=== PATIENT | male | born 1955 | race Hispanic/Latino ===

== ENCOUNTER 2017-11-08 02:14 | Observation (INO) | payer MEDICAID ==
[2017-11-08 02:15] VITALS: BMI 26.6
--- NOTE | 2017-11-08 03:29 | ED PDOC ---
HPI: Hypertension/Hypotension Time Seen by Provider: 11/08/17 02:50 Chief Complaint (Nursing): High Blood Pressure Chief Complaint (Provider): Hypertension History Per: Patient History/Exam Limitations: no limitations Onset/Duration Of Symptoms: Mins Current Symptoms Are (Timing): Still Present Associated Symptoms: Chest Pain (when blood pressure was elevated, around 11:15 PM last night) Additional History Per: Patient Additional Complaint(s): 62yo male with history of hypertension, hypercholesterolemia, diabetes, CABG, presents to ED for evaluation of elevated blood pressure and associated chest pain when blood pressure was elevated. Patient states he checked his blood pressure at 11:15 PM last night and noted it was 230/115, prompting his visit to the ED. Patient denies any chest pain at present, shortness of breath, headache, weakness, numbness, nausea, vomiting. No other complaints. PCP: Dr. Sanders Past Medical History Reviewed: Historical Data, Nursing Documentation, Vital Signs Vital Signs: Last Vital Signs Temp 98 F 11/08/17 02:27 Pulse 61 11/08/17 02:27 Resp 18 11/08/17 02:27 BP 148/97 H 11/08/17 02:57 Pulse Ox 99 11/08/17 02:27 - Medical History PMH: CAD, Diabetes, HTN, Hypercholesterolemia, Hyperlipidemia, Peripheral Edema , Rheumatoid Arthritis Denies: Chronic Kidney Disease - Surgical History Surgical History: CABG (x6) - Family History Family History: States: Unknown Family Hx - Living Arrangements Living Arrangements: With Family - Social History Current smoker - smoking cessation education provided: No Ex-Smoker (has not smoked in the last 12 months): No Alcohol: None Drugs: Denies - Immunization History Hx Tetanus Toxoid Vaccination: Yes Hx Influenza Vaccination: No Hx Pneumococcal Vaccination: Yes - Home Medications Home Medications: Ambulatory Orders Medication Instructions Recorded Atorvastatin [Lipitor] 40 mg PO HS 02/03/16 Losartan Potassium 50 mg PO BID 02/03/16 Metoprolol Tartrate [Lopressor] 100 mg PO BID 02/03/16 Minoxidil 2.5 mg PO DAILY 02/03/16 Triamterene/Hydrochlorothiazid 1 tab PO DAILY 02/03/16 [Triamterene-Hctz 37.5-25 mg Cp] metFORMIN [glucOPHAGE] 500 mg PO BID 02/03/16 Tamsulosin [Flomax] 0.4 mg PO DAILY 08/24/17 Aspirin [Ecotrin] 325 mg PO DAILY #30 11/08/17 Clopidogrel [Plavix] 75 mg PO DAILY #30 tab 11/08/17 Isosorbide Mononitrate ER [Imdur 30 mg PO DAILY #30 tab 11/08/17 ER] Nitroglycerin [Nitrostat] 0.4 mg SL Q4 PRN #20 tab.subl 11/08/17 hydroCHLOROthiazide [Hydrodiuril] 25 mg PO DAILY tab 11/08/17 - Allergies Allergies/Adverse Reactions: Allergies Allergy/AdvReac Type Severity Reaction Status Date / Time No Known Allergies Allergy Verified 08/24/17 01:03 Review of Systems ROS Statement: Except As Marked, All Systems Reviewed And Found Negative Constitutional: Negative for: Fever Cardiovascular: Positive for: Other (elevated blood pressure). Negative for: Chest Pain Respiratory: Negative for: Shortness of Breath Gastrointestinal: Negative for: Vomiting, Diarrhea Neurological: Negative for: Headache Physical Exam - Reviewed Nursing Documentation Reviewed: Yes Vital Signs Reviewed: Yes - Physical Exam Appears: Positive for: Non-toxic, No Acute Distress Head Exam: Positive for: ATRAUMATIC, NORMAL INSPECTION, NORMOCEPHALIC Skin: Positive for: Normal Color Eye Exam: Positive for: EOMI, PERRL Neck: Positive for: Normal, Supple Cardiovascular/Chest: Positive for: Regular Rate, Rhythm Respiratory: Positive for: Normal Breath Sounds. Negative for: Respiratory Distress Gastrointestinal/Abdominal: Positive for: Soft. Negative for: Tenderness Back: Positive for: Normal Inspection Extremity: Positive for: Normal ROM. Negative for: Deformity, Swelling Neurologic/Psych: Positive for: Alert, Oriented. Negative for: Motor/Sensory Deficits - Laboratory Results Result Diagrams: 11/08/17 03:23 11/08/17 03:23 - ECG ECG: Positive for: Interpreted By Me, Viewed By Me ECG Rhythm: Positive for: Normal QRS, Normal ST Segment, Sinus Rhythm. Negative for: ST/T Changes Rate: 63 O2 Sat by Pulse Oximetry: 99 (RA) Pulse Ox Interpretation: Normal Medical Decision Making Medical Decision Making: Impression: Hypertension and chest pain Plan: -- Labs -- EKG -- Chest x-ray Reassess chest pain ekg no change from prior troponin neg pt got asa 81 at home, given another 81 mg here. given nitro for pain/blood pressure. Time: 412 Patient to be admitted to OBS-TELE under Dr. Avery Scribe Attestation: Documented by Eli Polanco acting as a scribe for Tray Spangler MD. Provider Attestation: All medical record entries made by the Scribe were at my direction and personally dictated by me. I have reviewed the chart and agree that the record accurately reflects my personal performance of the history, physical exam, medical decision making, and the department course for this patient. I have also personally directed, reviewed, and agree with the discharge instructions and disposition. Disposition - Clinical Impression Clinical Impression: Abnormal blood pressure, Chest pain - Patient ED Disposition Is Patient to be Admitted: Yes Counseled Patient/Family Regarding: Studies Performed, Diagnosis - Disposition Disposition Time: 04:00 Condition: STABLE
[2017-11-08 03:35] LABS: BASO # 0.1 K/uL (0.0-0.2); BASO % 0.8 % (0.0-2.0); EOS # 0.1 K/uL (0.0-0.7); EOS % 1.8 % (0.0-4.0); HEMATOCRIT 41.4 % (35.0-51.0); LYMPH % 29.2 % (20.0-40.0); MEAN CELL VOLUME 77.9 fl (80.0-94.0); MEAN CORPUSCULAR HEMOGLOBIN 25.8 pg (27.0-31.0); MEAN CORPUSCULAR HGB CONC 33.1 g/dL (33.0-37.0); MEAN PLATELET VOLUME 9.1 fl (7.2-11.7); MONO # 0.5 K/uL (0.0-0.8); MONO % 7.1 % (0.0-10.0); NEUT # 4.2 K/uL (1.8-7.0); NEUT % 61.1 % (50.0-75.0); NRBC % 0.2 % (0.0-0.0); RED CELL DISTRIBUTION WIDTH 14.3 % (11.5-14.5); WHITE BLOOD COUNT 6.9 K/uL (4.8-10.8)
[2017-11-08 03:36] LABS: ALB/GLOB RATIO 1.3 (1.0-2.1); ALKALINE PHOSPHATASE 55 U/L (38-126); ALT/SGPT 42 U/L (21-72); AST/SGOT 28 U/L (17-59); BILIRUBIN,TOTAL 0.6 mg/dl (0.2-1.3); BLOOD UREA NITROGEN 13 mg/dl (9-20); CARBON DIOXIDE 22 mmol/L (22-30); CHLORIDE 105 mmol/L (98-107); GFR AFRICAN-AMERICAN > 60; GLUCOSE,RANDOM 106 mg/dL (75-110); SODIUM 140 mmol/l (132-148); TOTAL PROTEIN 7.6 G/DL (6.3-8.2)
--- NOTE | 2017-11-08 08:30 | CARD ---
APPROVED REPORT EKG Measurement Heart [id number] <Conclusion> Normal sinus rhythm Possible Left atrial enlargement Possible Inferior infarct, age undetermined Abnormal ECG
--- NOTE | 2017-11-08 08:31 | CARD ---
APPROVED REPORT EKG Measurement Heart [id number] <Conclusion> Normal sinus rhythm Possible Left atrial enlargement Possible Inferior infarct, age undetermined Abnormal ECG
--- NOTE | 2017-11-08 09:12 | RAD ---
HISTORY: chest pain COMPARISON: No prior. FINDINGS: LUNGS: No active pulmonary disease. PLEURA: No significant pleural effusion identified, no pneumothorax apparent. CARDIOVASCULAR: Prior sternotomy with sternal wires and surgical clips in place. Cardiomediastinal silhouette prominent. OSSEOUS STRUCTURES: Degenerative changes. VISUALIZED UPPER ABDOMEN: Normal. OTHER FINDINGS: None. IMPRESSION: No active disease.
--- NOTE | 2017-11-08 10:05 | PCM.RRT ---
<Nicolasa Silva - Last Filed: 11/08/17 11:26> I.Reason for CUSTOMER RELATIONSHIP SPECIALIST - A) Acute Change in Patient: Subjective: 62 yo M with hx hypertension, hypercholesterolemia, diabetes, CABG. CUST[employer]ER RELATIONSHIP SPECIALIST called for pt complain of chest pain. On arrival, BP was 136/75, HR 58, O2 sat 96%. Pt was complaining of moderate L sided squeezing chest pain. Chest pain was reproducible. Denied dyspnea. EKG was done - showed no acute changes from prior EKG. Blood was drawn for troponin. During the CUST[employer]ER RELATIONSHIP SPECIALIST pt desaturated to 92-93%, was placed on O2 via nasal canula. Improved to 96%. During [employer] RELATIONSHIP SPECIALIST, pt received nitroglycerin 0.4 mg. Pt felt relief after getting nitroglycerin. BP remained stable. Pt had negative troponin in ED at 3:30 am (negative), and received aspirin and nitroglycerin in ED. A: 62 yo M, with hx of hypertension, hypercholesterolemia, diabetes, CABG who had CUSTOMER RELATIONSHIP SPECIALIST called for chest pain. P: EKG- no acute changes from last EKG Troponin drawn during [employer]ER RELATIONSHIP SPECIALIST - negative Check troponin at 2 pm Case discussed with hospitalist Dr. Hodge, who was present at [employer]ATIONSHIP [employer]IST. <Fannie Hodge - Last Filed: 11/08/17 11:58> Attending/Attestation - Attestation I have personally seen and examined this patient.: Yes I have fully participated in the care of the patient.: Yes I have reviewed all pertinent clinical information, including history, physical exam and plan: Yes Notes (Text): 11/08/17 11:56 seen examined discussed with resident Dr. Costello called for chest pain, moderate pressure and squeezing, lasting more than 15 minutes relieved with SL nitro. HD stable. EKG no new changes from last, no ST-T wave segment changes during episode of chest pain. repeat troponin negative discussed with Cardiology Dr. Garcia notified and discussed with primary attending Dr. Avery
--- NOTE | 2017-11-08 10:08 | CP.PCM.CON ---
History of Present Illness - History of Present Illness History of Present Illness: This 62-year-old man came to the emergency room after experiencing chest discomfort which occurred after discovery of an elevated blood pressure reading at home. The patient subsequently experienced chest discomfort every time he recorded his blood pressure and was found to have an elevated reading. The patient admits to having eaten salty food within the last to 3 days. He has a long medical history that includes hypertension diabetes and dyslipidemia and admits to having smoked in the past. He had an acute myocardial infarction in 2009 and subsequently required coronary bypass graft surgery in 2012. Following this surgery the patient has been quite stable and a recent stress test which included exercising on a treadmill followed by myocardial perfusion imaging was reported as being satisfactory. 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 These particular episodes of chest discomfort that brought him to the hospital where not accompanied by any nausea vomiting or perspiration or did not radiate to his jaw or arms. A nitroglycerin tablet given in the emergency room and subsequently on the floor were followed by relief within 5 minutes. Electrocardiograms were recorded 32 of them during an episode of chest discomfort. There is no significant family history or symptoms of congestive cardiac failure. Physical examination shows a middle aged man who is comfortable at rest and quite free of chest discomfort. His risk greatly rate was 16 breaths per minute and the patient could carry on a conversation while propped up in bed. His heart rate was 68 bpm and regular and his blood pressure was 122/70 mmHg. His jugular venous pressure was not elevated and there was no edema over his lower extremity. His pedal pulses were well felt. There were no carotid bruits. His extremities were warm and his nailbeds were pink. No central or peripheral cyanosis was evident. A scar of sternotomy was present. the apex was not palpable the first and second heart sounds were normal. There were no murmurs and there was no gallop. There were no rales. His abdomen was soft and liver and spleen are not palpable. His electro-cardiogram showed sinus rhythm with evidence of an old inferior wall myocardial infarction. There were no ST-T abnormalities of myocardial ischemia recorded during chest pain this morning. 2 sets of cardiac enzymes were negative for any evidence of myocyte injury. His hemoglobin and hematocrit as well as BUN/creatinine and electrolytes were all within normal limits. Impression: Chest pain at rest with no evidence off acute coronary syndrome. 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 Hypertension, diabetes and dyslipidemia. 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 Past Patient History - Past Medical History & Family History Past Medical History?: Yes - Past Social History Alcohol: None Drugs: Denies - CARDIAC Hx Cardiac Disorders: Yes (HTN/CAD/CABG/High Cholesterol) - PULMONARY Hx Respiratory Disorders: No - NEUROLOGICAL Hx Neurological Disorder: No - HEENT Hx HEENT Problems: No - RENAL Hx Chronic Kidney Disease: No - ENDOCRINE/METABOLIC Hx Endocrine Disorders: Yes (DMII) - HEMATOLOGICAL/ONCOLOGICAL Hx Blood Disorders: No - INTEGUMENTARY Hx Dermatological Problems: Yes Other/Comment: MAS ON NECK(UPPER LEFT CHEST AREA NEAR NECK) FOR SURGERY . - MUSCULOSKELETAL/RHEUMATOLOGICAL Hx Rheumatoid Arthritis: Yes - GASTROINTESTINAL Hx Gastrointestinal Disorders: Yes Hx Constipation: Yes - GENITOURINARY/GYNECOLOGICAL Hx Genitourinary Disorders: No - PSYCHIATRIC Hx Substance Use: No - SURGICAL HISTORY Hx Coronary Artery Bypass Graft: Yes (x6) - ANESTHESIA Hx Anesthesia: Yes Hx Anesthesia Reactions: No Hx Malignant Hyperthermia: No Meds Allergies/Adverse Reactions: Allergies Allergy/AdvReac Type Severity Reaction Status Date / Time No Known Allergies Allergy Verified 08/24/17 01:03 - Medications Medications: Current Medications Aspirin (Ecotrin) 81 mg PO DAILY [facility] Last Admin: 11/08/17 08:49 Dose: 81 mg Atorvastatin Calcium (Lipitor) 40 mg PO [facility] Heparin Sodium (Porcine) (Heparin) 5,000 units SC Q8 [facility] PRN Reason: Protocol Last Admin: 11/08/17 08:48 Dose: 5,000 units Hydrochlorothiazide (Hydrodiuril) 25 mg PO DAILY [facility] Last Admin: 11/08/17 08:48 Dose: 25 mg Losartan Potassium (Cozaar) 50 mg PO BID [facility] Last Admin: 11/08/17 08:48 Dose: 50 mg Metformin HCl (Glucophage) 500 mg PO BID [facility] Last Admin: 11/08/17 08:51 Dose: 500 mg Metoprolol Tartrate (Lopressor) 100 mg PO BID [facility] Last Admin: 11/08/17 08:50 Dose: 100 mg Minoxidil (Minoxidil) 2.5 mg PO DAILY [facility] Last Admin: 11/08/17 08:50 Dose: 2.5 mg Tamsulosin HCl (Flomax) 0.4 mg PO DAILY [facility] Last Admin: 11/08/17 08:49 Dose: 0.4 mg Results - Vital Signs Recent Vital Signs: Last Vital Signs Temp 97.9 F 11/08/17 08:00 Pulse 61 11/08/17 08:50 Resp 20 11/08/17 08:00 BP 117/66 11/08/17 08:50 Pulse Ox 99 11/08/17 08:00 - Labs Result Diagrams: 11/08/17 03:23 11/08/17 03:23 Labs: Laboratory Results - last 24 hr 11/08/17 11/08/17 11/08/17 03:23 03:23 03:39 WBC 6.9 RBC 5.32 Hgb 13.7 Hct 41.4 MCV 77.9 L MCH 25.8 L MCHC 33.1 RDW 14.3 Plt Count 186 MPV 9.1 Neut % (Auto) 61.1 Lymph % (Auto) 29.2 [place] % (Auto) 7.1 Eos % (Auto) 1.8 Baso % (Auto) 0.8 Neut # 4.2 Lymph # 2.0 [place] # 0.5 Eos # 0.1 Baso # 0.1 Sodium 140 Potassium 4.0 Chloride 105 Carbon Dioxide 22 Anion Gap 17 BUN 13 Creatinine 0.8 Est GFR ( Amer) > 60 Est GFR (Non-Af Amer) > 60 POC Glucose (mg/dL) 108 Random Glucose 106 Calcium 9.0 Total Bilirubin 0.6 AST 28 ALT 42 Alkaline Phosphatase 55 Troponin I < 0.0120 Total Protein 7.6 Albumin 4.3 Globulin 3.3 Albumin/Globulin Ratio 1.3 11/08/17 11/08/17 05:57 08:24 WBC RBC Hgb Hct MCV MCH MCHC RDW Plt Count MPV Neut % (Auto) Lymph % (Auto) [place] % (Auto) Eos % (Auto) Baso % (Auto) Neut # Lymph # [place] # Eos # Baso # Sodium Potassium Chloride Carbon Dioxide Anion Gap BUN Creatinine Est GFR ( Amer) Est GFR (Non-Af Amer) POC Glucose (mg/dL) 114 H Random Glucose Calcium Total Bilirubin AST ALT Alkaline Phosphatase Troponin I < 0.0120 Total Protein Albumin Globulin Albumin/Globulin Ratio
[2017-11-08 16:23] VITALS: BP 125/69; RESP 14; TEMP 98.3
--- NOTE | 2017-11-08 16:37 | CP.PCM.HP ---
Past Patient History - Past Medical History & Family History Past Medical History?: Yes - Past Social History Smoking Status: Never Smoked - CARDIAC Hx Cardiac Disorders: Yes (HTN/CAD/CABG/High Cholesterol) - PULMONARY Hx Respiratory Disorders: No - NEUROLOGICAL Hx Neurological Disorder: No - HEENT Hx HEENT Problems: No - RENAL Hx Chronic Kidney Disease: No - ENDOCRINE/METABOLIC Hx Endocrine Disorders: Yes (DMII) - HEMATOLOGICAL/ONCOLOGICAL Hx AIDS: No Hx Human Immunodeficiency Virus (HIV): No - INTEGUMENTARY Hx Dermatological Problems: Yes Other/Comment: MAS ON NECK(UPPER LEFT CHEST AREA NEAR NECK) FOR SURGERY . - MUSCULOSKELETAL/RHEUMATOLOGICAL Hx Falls: No - GASTROINTESTINAL Hx Gastrointestinal Disorders: Yes Hx Constipation: Yes - GENITOURINARY/GYNECOLOGICAL Hx Genitourinary Disorders: No - PSYCHIATRIC Hx Substance Use: No - SURGICAL HISTORY Hx Coronary Artery Bypass Graft: Yes (x6) - ANESTHESIA Hx Anesthesia: Yes Hx Anesthesia Reactions: No Hx Malignant Hyperthermia: No Meds Allergies/Adverse Reactions: Allergies Allergy/AdvReac Type Severity Reaction Status Date / Time No Known Allergies Allergy Verified 08/24/17 01:03 Results - Vital Signs Recent Vital Signs: Last Vital Signs Temp 98.3 F 11/08/17 16:23 Pulse 60 11/08/17 16:23 Resp 14 11/08/17 16:23 BP 125/69 11/08/17 16:23 Pulse Ox 97 11/08/17 16:23 - Labs Result Diagrams: 11/08/17 03:23 11/08/17 03:23 Labs: Laboratory Results - last 24 hr 11/08/17 11/08/17 11/08/17 03:23 03:23 03:39 WBC 6.9 RBC 5.32 Hgb 13.7 Hct 41.4 MCV 77.9 L MCH 25.8 L MCHC 33.1 RDW 14.3 Plt Count 186 MPV 9.1 Neut % (Auto) 61.1 Lymph % (Auto) 29.2 [place] % (Auto) 7.1 Eos % (Auto) 1.8 Baso % (Auto) 0.8 Neut # 4.2 Lymph # 2.0 [place] # 0.5 Eos # 0.1 Baso # 0.1 Sodium 140 Potassium 4.0 Chloride 105 Carbon Dioxide 22 Anion Gap 17 BUN 13 Creatinine 0.8 Est GFR ( Amer) > 60 Est GFR (Non-Af Amer) > 60 POC Glucose (mg/dL) 108 Random Glucose 106 Calcium 9.0 Total Bilirubin 0.6 AST 28 ALT 42 Alkaline Phosphatase 55 Troponin I < 0.0120 Total Protein 7.6 Albumin 4.3 Globulin 3.3 Albumin/Globulin Ratio 1.3 11/08/17 11/08/17 11/08/17 05:57 08:24 11:21 WBC RBC Hgb Hct MCV MCH MCHC RDW Plt Count MPV Neut % (Auto) Lymph % (Auto) [place] % (Auto) Eos % (Auto) Baso % (Auto) Neut # Lymph # [place] # Eos # Baso # Sodium Potassium Chloride Carbon Dioxide Anion Gap BUN Creatinine Est GFR ( Amer) Est GFR (Non-Af Amer) POC Glucose (mg/dL) 114 H 105 Random Glucose Calcium Total Bilirubin AST ALT Alkaline Phosphatase Troponin I < 0.0120 Total Protein Albumin Globulin Albumin/Globulin Ratio 11/08/17 14:49 WBC RBC Hgb Hct MCV MCH MCHC RDW Plt Count MPV Neut % (Auto) Lymph % (Auto) [place] % (Auto) Eos % (Auto) Baso % (Auto) Neut # Lymph # [place] # Eos # Baso # Sodium Potassium Chloride Carbon Dioxide Anion Gap BUN Creatinine Est GFR ( Amer) Est GFR (Non-Af Amer) POC Glucose (mg/dL) Random Glucose Calcium Total Bilirubin AST ALT Alkaline Phosphatase Troponin I < 0.0120 Total Protein Albumin Globulin Albumin/Globulin Ratio
--- NOTE | 2017-11-08 16:38 | CP.PCM.DIS ---
Provider - Provider Date of Admission: 11/08/17 04:27 Attending physician: Lida Avery MD Time Spent in preparation of Discharge (in minutes): 20 Hospital Course - Lab Results Lab Results: Most Recent Lab Values WBC 6.9 K/uL (4.8-10.8) 11/08/17 03:23 RBC 5.32 Mil/uL (4.40-5.90) 11/08/17 03:23 Hgb 13.7 g/dL (12.0-18.0) 11/08/17 03:23 Hct 41.4 % (35.0-51.0) 11/08/17 03:23 MCV 77.9 fl (80.0-94.0) L 11/08/17 03:23 MCH 25.8 pg (27.0-31.0) L 11/08/17 03:23 MCHC 33.1 g/dL (33.0-37.0) 11/08/17 03:23 RDW 14.3 % (11.5-14.5) 11/08/17 03:23 Plt Count 186 K/uL (130-400) 11/08/17 03:23 MPV 9.1 fl (7.2-11.7) 11/08/17 03:23 Neut % (Auto) 61.1 % (50.0-75.0) 11/08/17 03:23 Lymph % (Auto) 29.2 % (20.0-40.0) 11/08/17 03:23 [place] % (Auto) 7.1 % (0.0-10.0) 11/08/17 03:23 Eos % (Auto) 1.8 % (0.0-4.0) 11/08/17 03:23 Baso % (Auto) 0.8 % (0.0-2.0) 11/08/17 03:23 Neut # 4.2 K/uL (1.8-7.0) 11/08/17 03:23 Lymph # 2.0 K/uL (1.0-4.3) 11/08/17 03:23 [place] # 0.5 K/uL (0.0-0.8) 11/08/17 03:23 Eos # 0.1 K/uL (0.0-0.7) 11/08/17 03:23 Baso # 0.1 K/uL (0.0-0.2) 11/08/17 03:23 Sodium 140 mmol/l (132-148) 11/08/17 03:23 Potassium 4.0 MMOL/L (3.6-5.0) 11/08/17 03:23 Chloride 105 mmol/L (98-107) 11/08/17 03:23 Carbon Dioxide 22 mmol/L (22-30) 11/08/17 03:23 Anion Gap 17 (10-20) 11/08/17 03:23 BUN 13 mg/dl (9-20) 11/08/17 03:23 Creatinine 0.8 mg/dl (0.8-1.5) 11/08/17 03:23 Est GFR ( Amer) > 60 11/08/17 03:23 Est GFR (Non-Af Amer) > 60 11/08/17 03:23 POC Glucose (mg/dL) 105 mg/dL (65-110) 11/08/17 11:21 Random Glucose 106 mg/dL (75-110) 11/08/17 03:23 Calcium 9.0 mg/dL (8.4-10.2) 11/08/17 03:23 Total Bilirubin 0.6 mg/dl (0.2-1.3) 11/08/17 03:23 AST 28 U/L (17-59) 11/08/17 03:23 ALT 42 U/L (21-72) 11/08/17 03:23 Alkaline Phosphatase 55 U/L (38-126) 11/08/17 03:23 Troponin I < 0.0120 ng/mL (0.00-0.120) 11/08/17 14:49 Total Protein 7.6 G/DL (6.3-8.2) 11/08/17 03:23 Albumin 4.3 g/dL (3.5-5.0) 11/08/17 03:23 Globulin 3.3 gm/dL (2.2-3.9) 11/08/17 03:23 Albumin/Globulin Ratio 1.3 (1.0-2.1) 11/08/17 03:23 Discharge Exam - Head Exam Head Exam: ATRAUMATIC, NORMAL INSPECTION, NORMOCEPHALIC Discharge Plan - Follow Up Plan Condition: STABLE Disposition: HOME/ ROUTINE
[2017-11-09 03:07] VITALS: PULSE 63; O2SAT 99
== END 2017-11-08 17:30 | disposition home or self-care (01) ==
LOC: H.ER 02:14 → H.ERHOLD 04:27 → H.TEL 07:46
PROVIDERS: ADMIT Internal Medicine; ATTEND Internal Medicine
DX: R07.9 Chest pain, unspecified (principal); I10 Essential (primary) hypertension; I25.10 Atherosclerotic heart disease of native coronary artery without angina pectoris; E78.5 Hyperlipidemia, unspecified; E11.9 Type 2 diabetes mellitus without complications; M06.9 Rheumatoid arthritis, unspecified; I25.2 Old myocardial infarction; Z95.1 Presence of aortocoronary bypass graft; Z79.02 Long term (current) use of antithrombotics/antiplatelets; Z79.82 Long term (current) use of aspirin; Z87.891 Personal history of nicotine dependence
CPT/HCPCS: 71010; 80053; 82948; 84484; 85025; 93005; 99285; G0378; J1644

== ENCOUNTER 2017-11-28 01:44 | Emergency (ER) | payer MEDICAID ==
[2017-11-28 01:45] VITALS: BMI 26.6
[2017-11-28 02:24] VITALS: PULSE 61; RESP 16; TEMP 98.2; O2SAT 97
[2017-11-28 03:09] LABS: BASO # 0.1 K/uL (0.0-0.2); BASO % 1.3 % (0.0-2.0); EOS # 0.3 K/uL (0.0-0.7); EOS % 4.2 % (0.0-4.0); LYMPH # 1.9 K/uL (1.0-4.3); LYMPH % 30.1 % (20.0-40.0); MEAN CELL VOLUME 76.5 fl (80.0-94.0); MEAN CORPUSCULAR HEMOGLOBIN 26.2 pg (27.0-31.0); MEAN CORPUSCULAR HGB CONC 34.2 g/dL (33.0-37.0); MEAN PLATELET VOLUME 8.9 fl (7.2-11.7); MONO # 0.6 K/uL (0.0-0.8); MONO % 8.9 % (0.0-10.0); NEUT # 3.6 K/uL (1.8-7.0); NEUT % 55.5 % (50.0-75.0); NRBC % 0.2 % (0.0-0.0); RBC 5.35 Mil/uL (4.40-5.90); RED CELL DISTRIBUTION WIDTH 14.4 % (11.5-14.5); WHITE BLOOD COUNT 6.4 K/uL (4.8-10.8)
[2017-11-28 03:15] LABS: INR 1.1 (0.9-1.2); PARTIAL THROMBOPLASTIN TIME 34.1 Seconds (25.6-37.1); PROTHROMBIN TIME 11.9 Seconds (9.8-13.1)
--- NOTE | 2017-11-28 04:15 | ED PDOC ---
HPI: Hypertension/Hypotension Time Seen by Provider: 11/28/17 02:23 Chief Complaint (Nursing): High Blood Pressure Chief Complaint (Provider): High Blood Pressure History Per: Patient History/Exam Limitations: no limitations Onset/Duration Of Symptoms: Days (4 days ago) Current Symptoms Are (Timing): Still Present Additional Complaint(s): 62yo arab male with history of hypertension, hypercholesterolemia, diabetes, CABG, presents to ED for evaluation of elevated blood pressure, onset of 4 days ago. Patient was seen 2 weeks ago in the ED, and since then he followed up with a bank manager and his primary care doctor with no changes in medication. Past Medical History Reviewed: Historical Data, Nursing Documentation, Vital Signs Vital Signs: Last Vital Signs Temp 98.2 F 11/28/17 02:23 Pulse 61 11/28/17 02:23 Resp 16 11/28/17 02:23 BP 184/89 H 11/28/17 02:23 Pulse Ox 97 11/28/17 02:23 - Medical History PMH: CAD, Diabetes, HTN, Hypercholesterolemia, Hyperlipidemia (dyslipidemia), Hyperthyroidism, Peripheral Edema, Rheumatoid Arthritis Denies: HIV, Chronic Kidney Disease - Surgical History Surgical History: CABG (x6) - Family History Family History: States: Unknown Family Hx - Living Arrangements Living Arrangements: With Family - Social History Current smoker - smoking cessation education provided: No Ex-Smoker (has not smoked in the last 12 months): No Alcohol: None Drugs: Denies - Immunization History Hx Tetanus Toxoid Vaccination: Yes Hx Influenza Vaccination: No Hx Pneumococcal Vaccination: Yes - Home Medications Home Medications: Ambulatory Orders Medication Instructions Recorded Atorvastatin [Lipitor] 40 mg PO HS 02/03/16 Losartan Potassium 50 mg PO BID 02/03/16 Metoprolol Tartrate [Lopressor] 100 mg PO BID 02/03/16 Minoxidil 2.5 mg PO DAILY 02/03/16 Triamterene/Hydrochlorothiazid 1 tab PO DAILY 02/03/16 [Triamterene-Hctz 37.5-25 mg Cp] metFORMIN [glucOPHAGE] 500 mg PO BID 02/03/16 Tamsulosin [Flomax] 0.4 mg PO DAILY 08/24/17 Aspirin [Ecotrin] 325 mg PO DAILY #30 11/08/17 Clopidogrel [Plavix] 75 mg PO DAILY #30 tab 11/08/17 Isosorbide Mononitrate ER [Imdur 30 mg PO DAILY #30 tab 11/08/17 ER] Nitroglycerin [Nitrostat] 0.4 mg SL Q4 PRN #20 tab.subl 11/08/17 hydroCHLOROthiazide [Hydrodiuril] 25 mg PO DAILY tab 11/08/17 - Allergies Allergies/Adverse Reactions: Allergies Allergy/AdvReac Type Severity Reaction Status Date / Time No Known Allergies Allergy Verified 08/24/17 01:03 Review of Systems ROS Statement: Except As Marked, All Systems Reviewed And Found Negative Constitutional: Negative for: Fever Cardiovascular: Positive for: Other (elevated blood pressure) Respiratory: Negative for: Shortness of Breath Gastrointestinal: Negative for: Nausea, Vomiting, Diarrhea Neurological: Negative for: Headache Physical Exam - Reviewed Nursing Documentation Reviewed: Yes Vital Signs Reviewed: Yes - Physical Exam Appears: Positive for: Non-toxic, No Acute Distress Head Exam: Positive for: ATRAUMATIC Skin: Positive for: Normal Color, Warm Eye Exam: Positive for: Normal appearance ENT: Positive for: Normal ENT Inspection Neck: Positive for: Normal Cardiovascular/Chest: Positive for: Regular Rate, Rhythm. Negative for: Murmur Respiratory: Positive for: Normal Breath Sounds. Negative for: Respiratory Distress Gastrointestinal/Abdominal: Positive for: Normal Exam, Soft. Negative for: Tenderness Back: Positive for: Normal Inspection Rectal: Positive for: Stool Is Heme: Extremity: Negative for: Pedal Edema, Deformity - Laboratory Results Result Diagrams: 11/28/17 02:59 11/28/17 02:59 - ECG O2 Sat by Pulse Oximetry: 97 (RA) Pulse Ox Interpretation: Normal Medical Decision Making Medical Decision Making: Time: --02:34 Impression: --62 yo male with elevated blood pressure in setting of hypertension Plan: --EKG --Urinalysis --Heplock Insertio Reassess --05:21 Patient remains asymptomatic and high blood pressure resolved. Provider encouraged maintain log of blood pressure for one week to follow with his primary care doctor so that it may help his provider calibrate his blood pressure medication. Patient is stable for discharge home. Scribe Attestation: Documented by Edvin Cole acting as a scribe for Sixto Holt MD. Disposition - Clinical Impression Clinical Impression: Hypertension - Patient ED Disposition Is Patient to be Admitted: No - Disposition Disposition: Routine/Home Disposition Time: 05:21 Condition: STABLE Instructions: Hypertension (ED) Forms: [facility] (Amharic)
[2017-11-28 05:38] VITALS: BP 135/87
[2017-11-28 05:42] LABS: ALB/GLOB RATIO 1.3 (1.0-2.1); ALBUMIN 4.4 g/dL (3.5-5.0); ALT/SGPT 32 U/L (21-72); AST/SGOT 27 U/L (17-59); BLOOD UREA NITROGEN 23 mg/dl (9-20); CALCIUM 9.4 mg/dL (8.4-10.2); GFR AFRICAN-AMERICAN > 60; GFR NON-AFRICAN AMERICAN > 60
== END 2017-11-28 05:41 | disposition home or self-care (01) ==
LOC: H.ER 01:44
DX: I10 Essential (primary) hypertension (principal); E05.90 Thyrotoxicosis, unspecified without thyrotoxic crisis or storm; E11.9 Type 2 diabetes mellitus without complications; E78.00 Pure hypercholesterolemia, unspecified; Z79.82 Long term (current) use of aspirin; Z79.84 Long term (current) use of oral hypoglycemic drugs; Z87.891 Personal history of nicotine dependence; Z95.1 Presence of aortocoronary bypass graft